=== PATIENT | female | born 1965 | race Caucasian/White ===

== ENCOUNTER 2017-07-16 11:34 | Emergency (ER) | payer SELFPAY ==
[2017-07-16] MEDS: KETOROLAC TROMETHAMINE 60 MG/2 ML VIAL IM ONE (12:49)
[2017-07-16] MEDS ORDERED: NALBUPHINE HCL 10 MG/1 ML IM ONE (13:19)
--- NOTE | 2017-07-16 13:21 | Diagnostic Imaging Report ---
TOÑA H[place]QUEZ ([place] - [place] [id number] [facility] [address] [id number] Report Submission Date: Jul 16, 2017 12:36:12 PM CDT Patient Study Name: PEPE ROMAN Date: Jul 16, 2017 12:07:13 PM CDT Modality Type: CR Gender: F Description: LOWER EXTREMITY : 65 Institution: Physician: TOÑA HENRIQUEZ ([facility]) - ER Right knee 3 views History: 1 year knee pain Findings: A small suprapatellar joint effusion is present. There is no fracture , dislocation, significant arthropathy, or focal bone lesion. Impression: Right knee joint effusion. Electronically signed on Jul 16, 2017 12:36:12 PM CDT by: Shailesh PRADO
[2017-07-16 14:01] VITALS: BP 136/79
--- NOTE | 2017-07-16 15:02 | ED Physician Documentation ---
General Adult - HISTORIAN Historian: patient - HPI Stated Complaint: knee pain Chief Complaint: General Adult Onset: other (1 year ago) Timing: worse Further Comments: yes (51 year old female patient presents with knee pain x 1 year. Patient denies any recent trauma, fall or injury. States today the pain is worse, tearful. Has not taken any over the counter medications.) - ROS CONST: no problems EYES/ENT: none CVS/RESP: none GI/: none MS/SKIN/LYMPH: none NEURO/PSYCH: denies: headache - PAST HX Past History: other (Graves disease) Allergies/Adverse Reactions: Allergies Allergy/AdvReac Type Severity Reaction Status Date / Time Penicillins AdvReac Unknown Anaphylaxis Verified 07/16/17 12:15 - SOCIAL HX Smoking History: cigarettes - FAMILY HX Family History: No - VITAL SIGNS Vital Signs: Vital Signs Temp Pulse Resp BP Pulse Ox 99.1 F 88 16 136/79 97 07/16/17 11:40 07/16/17 13:59 07/16/17 13:59 07/16/17 13:59 07/16/17 11:40 - REVIEWED ASSESSMENTS Nursing Assessment Reviewed: Yes Vitals Reviewed: Yes Progress - Progress Progress: Medicated for pain with toradol and nubain IM. Patient requesting refill on her thyroid medication, does not know the name of the medication. Patient does not have a PCP. Provided list of free clinics in [place]; strongly encouraged to establish care. ED Results Lab/Radiology - Orders Orders: ED Orders Category Date Time Status KNEE 3 VIEWS [RAD] Stat Exams 07/16/17 Completed Ketorolac Tromethamine [Toradol] Med 07/16/17 12:03 Discontinued 60 mg IM NOW ONE Nalbuphine HCl [Nubain] Med 07/16/17 13:19 Discontinued 10 mg IM NOW ONE General Adult Physical Exam - PHYSICAL EXAM GENERAL APPEARANCE: moderate distress EENT: eye inspection normal, JURGEN RESPIRATORY: no resp distress, chest non-tender CVS: reg rate & rhythm, heart sounds normal ABDOMEN: soft SKIN: normal color, warm/dry, NR, INT, PAL, DR EXTREMITIES: normal range of motion, no evidence of injury, other (Right knee with medial edema noted, c/o pain with flexion; medial laxity noted) NEURO: oriented X3, motor nml, sensation nml, mood/affect nml Discharge Clincal Impression: Effusion, right knee Referrals: Primary Doctor,No [Primary Care Provider] - 2 Days Condition: Stable Disposition: 01 HOME, SELF-CARE Decision to Admit: NO Decision Time: 13:45
== END 2017-07-16 13:25 | disposition home or self-care (01) ==
LOC: ED 11:34
DX: M25.461 Effusion, right knee (principal)
CPT/HCPCS: 73562; J1885; 96372; 99283

== ENCOUNTER 2018-08-21 13:03 | Emergency (ER) | payer SELFPAY ==
--- NOTE | 2018-08-21 13:07 | ED Physician Documentation ---
General Adult - HISTORIAN Historian: patient - HPI Stated Complaint: anxiety Chief Complaint: General Adult Onset: other (2 weeks ago she started to have increased anxiety. She has hyperthyroidism (she has not taken meds in years) . She has a history of anxiety and she has taken "all kinds of meds" (prozac, clonazapam, xanax etc) she does not have a PCP due to cost and insurance issues. She has no chest pain. No shortness of breath other than when she feels anxious ) Timing: still present Severity: moderate Further Comments: yes (she reports having a history since her 20's of anxiety and over last two weeks is increased. She is not on any current meds. She cannot afford health care. She is anxious and upset . She has a thyroid condition and she is not taking medications for this at this time.) Last known Well Code/Unknown Code: Unknown - ROS CONST: no problems EYES/ENT: none CVS/RESP: denies: chest pain, shortness of breath GI/: denies: problems urinating, vomiting, nausea, diarrhea MS/SKIN/LYMPH: denies: rash NEURO/PSYCH: denies: headache, fainting, dizziness, tingling, numbness, difficulty walking, difficulty with speech, anxiety, depression - PAST HX Past History: other (hyperthyroidism and anxiety ) Surgeries/Procedures: , cholecystectomy Immunizations: UTD Allergies/Adverse Reactions: Allergies Allergy/AdvReac Type Severity Reaction Status Date / Time Penicillins AdvReac Unknown Anaphylaxis Verified 08/21/18 13:49 Home Medications: Ambulatory Orders Medication Instructions Recorded NK 08/21/18 - SOCIAL HX Smoking History: cigarettes Alcohol Use: none Drug Use: none - FAMILY HX Family History: No - VITAL SIGNS Vital Signs: Vital Signs Temp Pulse Resp BP Pulse Ox 136/79 07/16/17 13:59 - REVIEWED ASSESSMENTS Nursing Assessment Reviewed: Yes Vitals Reviewed: Yes Progress - Progress Progress: 1400: remains tearful stating she is nervous. She denies any specific issues to be anxious. No life issues. She denies suicidal thoughts. DG 1410: sleeping quietly in room. Awakens easily. HR has decreased as well as b/p . Not tearful. States she feels better. Results discussed and plan she is agreeable DG General Adult Physical Exam - PHYSICAL EXAM GENERAL APPEARANCE: no distress EENT: eye inspection normal, ENT inspection normal, pharynx normal, dry mucous membranes NECK: normal inspection RESPIRATORY: no resp distress, chest non-tender, breath sounds normal CVS: reg rate & rhythm, heart sounds normal, equal pulses, no murmur ABDOMEN: soft, no distension BACK: normal inspection, no CVA tenderness SKIN: warm/dry EXTREMITIES: non-tender, normal range of motion, no evidence of injury, no edema NEURO: oriented X3, CN's nml as tested, motor nml, sensation nml, mood/affect nml, cognition normal Discharge Clincal Impression: Anxiety Referrals: Primary Doctor,No [Primary Care Provider] - 2 Days Additional Instructions: 1. Seek care of a PCP - ELIZABETH - labs will be send out will notify of thyroid levels. (Numbers to clinic given) 2. Increase fluids 3. Hydroxizine 25 mg take 1 by mouth every 8 hours as needed for anxiety 4. Return to ER for any concerns Condition: Stable Disposition: 01 HOME, SELF-CARE Decision to Admit: NO Date of Decison to Admit: 08/21/18 Decision Time: 14:14
[2018-08-21] MEDS ORDERED: 0.9 % SODIUM CHLORIDE 1,000 ML IV ONE (13:14)
[2018-08-21] MEDS ORDERED: LORazepam 2 MG/ML VIAL IVP ONE (13:27)
[2018-08-21 14:00] LABS: eGFR (Non-African) > 60
[2018-08-21 14:15] LABS: CANNABINOIDS NON NEGATIVE ng/mL (< 50)
[2018-08-21 14:16] LABS: METHYLENEDIOXYMETHAMPHETAMINE NEGATIVE ng/mL (<500)
[2018-08-21 14:48] VITALS: BP 142/81
[2018-08-21 15:21] LABS: BASO % 0.3 % (0.0-1.5); EOS % 0.8 % (0.0-6.8); LYMPH ABS # 4.05 thou/uL (0.60-4.00); MCH. 28.4 pg (28.0-34.0); MCV 85.2 fL (80.0-100.0); MONOCYTE % 5.1 % (0.0-11.0); MONOCYTE ABS # 0.47 thou/uL (0.00-0.90); PLATELET COUNT 256 thou/uL (130-400)
== END 2018-08-21 14:46 | disposition home or self-care (01) ==
LOC: ED 13:03
DX: F41.9 Anxiety disorder, unspecified (principal)
CPT/HCPCS: 80053; 80320; 80377; 84439; 84443; 84481; 85025; J2060; J7030; 96365; 96375; 99284; G0480; G0481; S1016

== ENCOUNTER 2019-06-05 13:08 | Emergency (ER) | payer OTHER ==
--- NOTE | 2019-06-05 13:43 | ED Physician Documentation ---
General Adult - HISTORIAN Historian: patient - HPI Stated Complaint: no complaints Chief Complaint: General Adult Additional Information: Patient presents to ED after being arrested for driving while under the influence. She has no complaints at this time. 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) Other History: none Surgeries/Procedures: other (thyroidectomy) Allergies/Adverse Reactions: Allergies Allergy/AdvReac Type Severity Reaction Status Date / Time Penicillins AdvReac Unknown Anaphylaxis Verified 08/21/18 13:49 Home Medications: Ambulatory Orders Medication Instructions Recorded NK 08/21/18 - SOCIAL HX Smoking History: cigarettes, greater than 1 pack/day Alcohol Use: occasionally Drug Use: other - FAMILY HX Family History: No - VITAL SIGNS Vital Signs: Vital Signs Temp Pulse Resp BP Pulse Ox 142/81 08/21/18 14:46 - REVIEWED ASSESSMENTS Nursing Assessment Reviewed: Yes Vitals Reviewed: Yes ED Results Lab/Radiology - Lab Results Lab Results: Blood sugar 145 General Adult Physical Exam - PHYSICAL EXAM GENERAL APPEARANCE: no distress EENT: JURGEN NECK: supple RESPIRATORY: no resp distress, chest non-tender, breath sounds normal CVS: reg rate & rhythm, heart sounds normal ABDOMEN: soft, normal bowel sounds, non-tender BACK: normal inspection, no CVA tenderness SKIN: warm/dry, normal color EXTREMITIES: non-tender NEURO: oriented X3, motor nml, sensation nml, depressed mood/affect Discharge Clincal Impression: Encounter for wellness examination in adult Referrals: Primary Doctor,No [Primary Care Provider] - 2 Days Comments: Fit for confinement. Condition: Stable Disposition: 01 HOME, SELF-CARE Decision to Admit: NO Date of Decison to Admit: 06/05/19 Decision Time: 13:45
[2019-06-05 15:41] VITALS: BP 142/85
== END 2019-06-05 14:50 | disposition home or self-care (01) ==
LOC: LAB 13:08 → ED 13:08 → EDSTATUS 13:41 → ED 14:50
DX: Z00.00 Encounter for general adult medical examination without abnormal findings (principal)